=== PATIENT | female | born 1935 | race Two or more races ===

== ENCOUNTER 2025-04-28 14:55 | Emergency (ER) | payer OTHER ==
[~2025-04-28] VITALS: Ht 152.4 cm; Wt 40.8 kg
[2025-04-28] MEDS ORDERED: TOPROL XL25 M1 PO (15:54)
[2025-04-28] MEDS ORDERED: VASOFLEX D1 CA1 EACH PO (15:54)
[2025-04-28] MEDS ORDERED: ECOTRIN81 MG PO (15:54)
[2025-04-28] MEDS ORDERED: LOSARTAN POTASS25 MG PO (15:54)
[2025-04-28] MEDS ORDERED: RESTORIL7.5 MG PO (15:55)
[2025-04-28 19:31] LABS: BASO % 0.5 % (0.1-1.2); EOS # 0.02 (0.04-0.54); EOS % 0.3 % (0.7-7.0); LYMPH # 0.86 (1.18-3.74); LYMPH % 11.1 % (19.3-53.1); MEAN PLATELET VOLUME 11.20 fl (9.4-12.4); MONO # 0.36 (0.24-0.82); MONO % 4.6 % (4.7-12.5); NEUT # 6.48 (1.56-6.13); NEUT % 83.2 % (34.0-71.1); RED CELL DISTRIBUTION WIDTH 16.3 % (11.6-14.4)
[2025-04-28 19:35] LABS: ERYTHROCYTE SEDIMENTATION RATE 8 mm/hr (0-30)
[2025-04-28 20:00] LABS: INR 1.15
[2025-04-28 20:21] LABS: ALT/SGPT 26 U/L (12-78); AST/SGOT 43 U/L (15-37); BILIRUBIN TOTAL 0.40 mg/dL (0.3-1.2); BUN CREA RATIO 22 (7.0-25.0); CREATININE SERUM 1.33 mg/dL (0.55-1.02); GFR 37.65; GLOBULINA 3.9 G/DL (2.4-3.5); GLUCOSE FASTING 138 mg/dL (65-100); OSMOLALITY SERUM 286 MOSM/KG (275-295)
[2025-04-28 20:44] LABS: URINE APPEARANCE Cloudy; URINE BILIRRUBIN Negative (NEGATIVE); URINE BLOOD Negative; URINE COLOR Yellow; URINE GLUCOSE Negative (NEGATIVE); URINE KETONE Negative (NEGATIVE); URINE LEUKOCYTE Negative; URINE NITRATE Negative; URINE PROTEIN Negative (NEGATIVE); URINE UROBILINOGEN 0.2 E.U./dl
[2025-04-28 20:47] LABS: URINE BACTERIA 20.3 uL (0.0-1933); URINE EPITHELIAL CELLS 2.3 uL (0.0-38.8); URINE RBC 8.3 uL (0.0-20.8); URINE WBC 9.6 uL (0.0-23.2)
[2025-04-28 20:52] LABS: URINE CAST 0.29 uL (0.0-1.40)
[2025-04-28] MEDS ORDERED: NORFLEX100MG PO (22:23)
== END 2025-04-28 22:48 | disposition home or self-care (01) ==
LOC: ER 14:55
PROVIDERS: General Practice
DX: S89.80XA Other specified injuries of unspecified lower leg, initial encounter (principal); W19.XXXA Unspecified fall, initial encounter; Y93.89 Activity, other specified; Y92.098 Other place in other non-institutional residence as the place of occurrence of the external cause; Y99.8 Other external cause status; R60.0 Localized edema; I10 Essential (primary) hypertension